=== PATIENT | male | born 1955 | race Caucasian/White ===

== ENCOUNTER 2020-04-07 10:37 | Outpatient (REF) | payer SELFPAY ==
--- NOTE | 2020-04-07 | XR_ITS ---
EXAMINATION: XR LUMBOSACRAL SPINE WITH OBLIQUES CLINICAL INFORMATION: Spinal stenosis COMPARISON: CT dated 10/05/2019 TECHNIQUE: AP, both oblique, and lateral views of the lumbar spine. Lateral view of the lumbosacral junction. FINDINGS: Posterior instrumented spinal fusion across L5-S1. 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 There is moderate loss of disc space height at L4-L5 and L5-S1. Bilateral posterolateral bone graft present along the paraspinal rods. Small endplate osteophytes present throughout the lumbar spine. Fusion hardware transfixes a left sacroiliac joint. No evidence of hardware failure or complication. XR/XR lumbar spine 6V w bending IMPRESSION: No evidence of hardware failure or complication with respect to the posterior spinal fusion at L5-S1. Stable anterolisthesis of L5 on S1.
--- NOTE | 2020-04-07 10:48 | XR_ITS ---
EXAMINATION: XR BILATERAL HIPS WITH AP PELVIS CLINICAL INFORMATION: Sacroiliac joint pain COMPARISON: None TECHNIQUE: Single AP view of pelvis and FINDINGS: Posterior instrumented spinal fusion at L5-S1 with bilateral paraspinal rods and screws. Fusion hardware across the left sacroiliac joint. Femoral heads are spherical. Mild bilateral hip joint space narrowing. Small bilateral acetabular osteophytes. Pelvic ring intact. XR/XR hip BI w PEL1V IMPRESSION: No acute fracture or dislocation. Mild bilateral hip joint space narrowing associated marginal osteophytes.
== END 2020-04-07 10:38 | disposition home or self-care (01) ==
LOC: HO.XRAY 10:37
PROVIDERS: Visit Provider Physician Assistant
DX: M53.3 Sacrococcygeal disorders, not elsewhere classified (principal); M43.06 Spondylolysis, lumbar region; M48.061 Spinal stenosis, lumbar region without neurogenic claudication; M43.10 Spondylolisthesis, site unspecified
CPT/HCPCS: 72114; 73521

== ENCOUNTER 2020-05-02 09:08 | Outpatient (REF) | payer OTHER, SELFPAY ==
--- NOTE | 2020-05-02 09:10 | CT_ITS ---
EXAMINATION: CT PELVIS WITHOUT CONTRAST CLINICAL INFORMATION: Low back pain COMPARISON: Previous CT of the abdomen and pelvis August 2019 TECHNIQUE: Helical scanning was performed with submillimeter collimation through the pelvis. Sagittal and coronal multiplanar 2-D reconstructions were obtained. This CT examination was performed using dose optimization techniques as appropriate, variously including the following: *Automated exposure control *Adjustment of mA and/or kV according to patient size (this includes techniques or standardized protocols for targeted exams where dose is matched to indication/reason for exam; i.e. extremities or head) *Use of iterative reconstruction technique DLP: 572 mGy-cm FINDINGS: There is severe diverticulosis of the colon. No evidence of diverticulitis is seen. There is stool throughout the colon suggestive of constipation. There is abnormal soft tissue along the right anterior wall of the rectum. This measures 4 x 2 x 1.7 cm in longitudinal AP and transverse dimension. This is similar appearing to previous exam August 2019 and is again concerning for possible rectal mass. There is evidence of previous ventral hernia repair with mesh. No ascites or adenopathy is seen. There is evidence of atherosclerotic disease. The bladder is unremarkable. The prostate gland does not appear enlarged. OSSEOUS STRUCTURES: There are new postsurgical changes from posterior fusion with posterior rods and interpedicular screws at L5-S1. There is stable 1 cm anterior subluxation of L5 with respect to S1. There is degenerative disc disease at L5-S1. There is new fusion hardware seen across the left sacroiliac joint. The left sacroiliac joint does not appear ankylosed. CT/CT pelvis wo con IMPRESSION: Question rectal mass. Diverticulosis and constipation. New postsurgical change at L5-S1. Stable 1 cm anterior subluxation of L5 with respect to S1. New fusion hardware across the left sacroiliac joint. The left sacroiliac joint does not appear ankylosed.
--- NOTE | 2020-05-02 09:11 | CT_ITS ---
EXAMINATION: CT LUMBAR SPINE WITHOUT CONTRAST CLINICAL INFORMATION: Low back pain. COMPARISON: None TECHNIQUE: 2 mm thin axial and reformatted 2 mm thin sagittal and coronal images of lumbar spine were obtained. This CT examination was performed using dose optimization techniques as appropriate, variously including the following: *Automated exposure control *Adjustment of mA and/or kV according to patient size (this includes techniques or standardized protocols for targeted exams where dose is matched to indication/reason for exam; i.e. extremities or head) *Use of iterative reconstruction technique DLP; 881 mGy-cm. FINDINGS: There is normal lumbar lordosis. There is grade 2 anterolisthesis L5 over S1 with loss of L5-S1 disc height. There are bilateral L5 and S1 pedicular screws with interconnecting rods for stabilization L5-S1 listhesis. The rest of the disc heights, vertebral alignment and all vertebral heights are normal. The T11-T12, T12-L1, L1-L2 disc levels are unremarkable. The neural foramina are widely patent. At L2-L3 disc level, there is a broad-based diffuse bulge flattening the ventral thecal sac without spinal canal stenosis. The neural foramina are patent bilaterally. At L3-L4 disc level, there is a broad base diffuse bulge with mild AP canal stenosis. The neural foramina are patent bilaterally. At L4-L5 disc level, there is diffuse bulge without spinal canal stenosis. The neural foramina are patent bilaterally. At L5-S1 disc level, there is moderate diffuse pseudo-disc bulge without spinal canal stenosis. The neural foramina are patent bilaterally. There are bilateral L5 pars defects stabilized with posterior hardware. The paravertebral soft tissues are normal. The prevertebral and paravertebral soft tissues are normal. No lytic or sclerotic process seen. There is L5-S1 fusion with [address] The right SI joint is unremarkable. CT/CT lumbar spine wo con IMPRESSION: Grade 2 anterolisthesis L5 over S1, stabilized with bilateral L5 and S1 pedicular screws and interconnecting sylvia. There is mild pseudo-disc bulge but no spinal canal stenosis. Mild disc bulges L3-L4 and L4-L5 disc levels with mild AP canal stenosis at L3-L4 disc level.
== END 2020-05-02 09:09 | disposition home or self-care (01) ==
LOC: HO.CT 09:08
PROVIDERS: Visit Provider Physician Assistant
DX: M54.5 Low back pain (principal)
CPT/HCPCS: 72131; 72192